=== PATIENT | female | born 1940 | race Caucasian/White ===

== ENCOUNTER 2017-12-20 14:58 | Inpatient (IN) ==
[2017-12-20 15:52] LABS: Basophils % 0.3 %; Eosinophils # 0.2 K/mcL (0.0-0.6); Eosinophils % 1.3 %; Hematocrit 39.2 % (35.3-44.9); Hemoglobin 13.3 g/dL (11.5-15.4); Immature Granulocytes % 0.3 % (0-4); Lymphocytes # 1.8 K/mcL (0.6-4.6); Mean Corpuscular HGB Conc 33.9 g/dL (31.6-35.5); Mean Corpuscular Hemoglobin 31.4 pg (28.0-33.3); Mean Corpuscular Volume 92.7 fL (83.0-100.0); Mean Platelet Volume 10.7 fL (9.4-12.4); Monocytes # 1.3 K/mcL (0.0-1.3); Monocytes % 11.5 %; Platelet Count 189 K/mcL (140-400); Red Blood Count 4.23 M/mcL (3.82-4.97); Red Cell Distribution Width 12.3 % (11.5-14.5); Segmented Neutrophils % 70.6 %
[2017-12-20 15:54] LABS: Bilirubin,Urine Negative (Negative); Blood,Urine Negative (Negative); Clarity,Urine Cloudy (Clear); Color,Urine Yellow (Yellow); Glucose,Urine (UA) Normal (Normal); Ketones,Urine Negative (Negative); Leukocyte Esterase,Urine Large (Negative); Nitrite,Urine Negative (Negative); Protein,Urine Negative (Neg-Trace); Specific Gravity,Urine 1.024 (1.010-1.025); Urobilinogen,Urine Normal (Normal)
[2017-12-20 15:57] LABS: Bacteria,Urine Few per hpf (None-Few); Hyaline Casts,Urine None Seen per lpf (None-Few); Squamous Epithelial Cell,Urine Many per lpf (None-Few); WBC,Urine 30-50 per hpf (0-3)
[2017-12-20 16:11] LABS: Alanine Aminotransferase 21 Units/L (7-52); Albumin 4.1 g/dL (3.5-5.7); Albumin/Globulin Ratio 1.4 (1.1-2.2); Alkaline Phosphatase 62 Units/L (34-104); Aspartate Amino Transferase 24 Units/L (13-39); BUN/Creatinine Ratio 18 (6-26); Bilirubin,Direct 0.2 mg/dL (0.0-0.2); Bilirubin,Indirect 0.8 mg/dL (0.0-1.2); Blood Urea Nitrogen 13 mg/dL (8-23); Calcium 10.1 mg/dL (8.6-10.3); Carbon Dioxide 25 mEq/L (23-29); Chloride 106 mEq/L (98-107); Glucose 124 mg/dL (70-105); Lipase 4 Units/L (11-82); Osmolality,Calculated 286 (280-300); Potassium 4.2 mEq/L (3.5-5.1); Sodium 137 mEq/L (136-145); Total Protein 7.1 g/dL (6.4-8.9); eGFR For Non-African Americans > 60 (> 60)
[2017-12-20] MEDS ORDERED: Sulfamethoxazole/Trimeth DS 1 EACH TABLET PO ONE (16:27)
--- NOTE | 2017-12-20 16:31 | Emergency Department Note ---
Disposition Clinical Impression: Acute appendicitis Disposition: Admitted As Inpatient Condition: Fair General Adult HPI - General Chief complaint: ED Abdominal Pain Stated complaint: ABD Pain Time Seen by Provider: 12/20/17 16:15 Source: patient Limitations: no limitations Nursing Notes Reviewed: Yes Vital Signs Reviewed: Yes - History of Present Illness Pain Scale: 9 - Related Data Home Medications Medication Instructions Recorded Confirmed Aspirin Enteric Coated [Aspirin EC] 81 mg PO DAILY 12/20/17 12/20/17 Furosemide [Lasix] 40 mg PO DAILY PRN 12/20/17 12/20/17 Ranitidine HCl [Heartburn Relief] 150 mg PO DAILY 12/20/17 12/20/17 Allergies Allergy/AdvReac Type Severity Reaction Status Date / Time No Known Allergies Allergy Verified 12/20/17 17:18 Past Medical History - Past Medical History Medical history: Reports: other Surgical history: Reports: non-contributory Psychiatric history: Reports: no psych history - Social History Smoking Status: Never smoker Smokeless Tobacco Status: No Alcohol use: Reports: none Drug use: Reports: none Physical Exam - General Limitations: no limitations General appearance: alert, in no apparent distress Course Vital Signs Temperature 98.4 F 12/20/17 15:00 Pulse Rate 89 12/20/17 15:00 Respiratory Rate 18 12/20/17 15:00 Blood Pressure 178/74 12/20/17 15:00 O2 Sat by Pulse Oximetry 95 12/20/17 15:00 Temperature 98.4 F 12/20/17 16:23 Pulse Rate 89 12/20/17 16:23 Respiratory Rate 18 12/20/17 16:23 Blood Pressure 178/74 12/20/17 16:23 O2 Sat by Pulse Oximetry 95 12/20/17 16:23 Oxygen Delivery Oxygen Delivery Room Air Medical Decision Making - [facility] Narrative Medical decision making narrative: Abdomen/Pelvis CT 12/20/17 16:27 IMPRESSION: Findings are suspicious for early acute appendicitis with periappendiceal inflammatory change and some appendiceal dilatation. No fluid collection is identified. D/ / Christophe Miller / Christophe Miller Interpreting Provider: Christophe Miller 17:10 hrs: Patient's white count is elevated looks like may be early appendicitis. Were going to speak with surgery and bring her into the hospital. She is in agreement with plan. 1748 hrs., surgery is here to take the patient to the OR. - Lab Data Result diagrams: 12/20/17 15:03 12/20/17 15:03 Lab Results 12/20/17 12/20/17 12/20/17 Range/Units 15:03 15:03 15:40 WBC 11.3 H (4.3-11.1) K/mcL RBC 4.23 (3.82-4.97) M/mcL Hgb 13.3 (11.5-15.4) g/dL Hct 39.2 (35.3-44.9) % MCV 92.7 (83.0-100.0) fL MCH 31.4 (28.0-33.3) pg MCHC 33.9 (31.6-35.5) g/dL RDW 12.3 (11.5-14.5) % Plt Count 189 (140-400) K/mcL MPV 10.7 (9.4-12.4) fL Immature Gran % 0.3 (0-4) % Seg Neutrophils % 70.6 % Lymphocytes % 16.0 % Monocytes % 11.5 % Eosinophils % 1.3 % Basophils % 0.3 % Neutrophils # 8.0 (1.6-8.9) K/mcL Lymphocytes # 1.8 (0.6-4.6) K/mcL Monocytes # 1.3 (0.0-1.3) K/mcL Eosinophils # 0.2 (0.0-0.6) K/mcL Basophils # 0.0 (0.0-0.2) K/mcL Sodium 137 (136-145) mEq/L Potassium 4.2 (3.5-5.1) mEq/L Chloride 106 (98-107) mEq/L Carbon Dioxide 25 (23-29) mEq/L BUN 13 (8-23) mg/dL Creatinine 0.72 (0.60-1.20) mg/dL Est GFR ( Amer) > 60 (> 60) Est GFR (Non-Af Amer) > 60 (> 60) BUN/Creatinine Ratio 18 (6-26) Glucose 124 H (70-105) mg/dL Calculated Osmolality 286 (280-300) Calcium 10.1 (8.6-10.3) mg/dL Total Bilirubin 1.0 (0.3-1.0) mg/dL Direct Bilirubin 0.2 (0.0-0.2) mg/dL Indirect Bilirubin 0.8 (0.0-1.2) mg/dL AST 24 (13-39) Units/L ALT 21 (7-52) Units/L Alkaline Phosphatase 62 (34-104) Units/L Serum Total Protein 7.1 (6.4-8.9) g/dL Albumin 4.1 (3.5-5.7) g/dL Globulin 3.0 (2.4-3.5) g/dL Albumin/Globulin Ratio 1.4 (1.1-2.2) Lipase 4 L (11-82) Units/L Urine Color Yellow (Yellow) Urine Clarity Cloudy A (Clear) Urine pH 7.0 (5.0-8.0) pH Units Ur Specific [place] 1.024 (1.010-1.025) Urine Protein Negative (Neg-Trace) mg/dL Urine Glucose (UA) Normal (Normal) mg/dL Urine Ketones Negative (Negative) mg/dL Urine Blood Negative (Negative) Urine Nitrite Negative (Negative) Urine Bilirubin Negative (Negative) Urine Urobilinogen Normal (Normal) mg/dL Ur Leukocyte Esterase Large H (Negative) Urine Microscopic RBC 3-5 H (0-3) per hpf Urine Microscopic WBC 30-50 H (0-3) per hpf Ur Squamous Epith Cells Many H (None-Few) per lpf Urine Bacteria Few (None-Few) per hpf Hyaline Casts None Seen (None-Few) per lpf Ur Culture Indicated? NO. A (NO) Attestation Statement - Attestation Attestation: This documentation is done with the assistance of Dragon dictation. Despite efforts made to ensure accuracy, there may be inaccuracies in staff consultant or spelling and typographical errors. I examined this patient and my medical decision-making was reviewed with the Resident Physician. I agree with the documented findings, disposition and treatment plan as described except to the extent set forth below. Patient presents today was seen with Dr. Sparks and myself, I agree with her evaluation and management plan, supervise care the patient's stay. Patient presents today with possible UTI and she has had increased frequency of urination and dysuria and suprapubic and left-sided abdominal pain denies any flank pain or chest pain. Her urine looks like it is infected we will culture her CBC and chemistries unremarkable. A CT her abdomen makes sure there is no other intra- abdominal pathology started on Bactrim Pyridium here and if the CT looks good she will go home with follow-up primary care on antibiotics. She is in agreement with this plan.
--- NOTE | 2017-12-20 17:23 | Emergency Department Note ---
Disposition Clinical Impression: Acute appendicitis Qualifiers: Acute appendicitis type: with localized peritonitis Qualified Code(s): K35.3 - Acute appendicitis with localized peritonitis Disposition: Admitted As Inpatient Condition: Fair Referrals: Shannon Goncalves DO [Primary Care Provider] - Forms: ED Satisfaction Letter, Work/School Release Time of Disposition: 17:28 General Adult HPI - General Chief complaint: ED Abdominal Pain Stated complaint: ABD Pain Time Seen by Provider: 12/20/17 16:15 Source: patient Mode of arrival: ambulatory Limitations: no limitations Nursing Notes Reviewed: Yes Vital Signs Reviewed: Yes - History of Present Illness HPI Narrative: 77-year-old female with no significant past medical history presenting to the emergency part chief complaint of abdominal pain. Patient states she has had some increased frequency in urination but denies dysuria or hematuria. Patient states it started this morning and has progressively been getting worse. Located in the suprapubic region and radiates to the right lower quadrant and left lower quadrant. Patient discloses nausea but denies vomiting or diarrhea. Denies any fever, chest pain or shortness of breath. Pain Scale: 9 - Related Data Home Medications Medication Instructions Recorded Confirmed Aspirin Enteric Coated [Aspirin EC] 81 mg PO DAILY 12/20/17 12/20/17 Furosemide [Lasix] 40 mg PO DAILY PRN 12/20/17 12/20/17 Ranitidine HCl [Heartburn Relief] 150 mg PO DAILY 12/20/17 12/20/17 Allergies Allergy/AdvReac Type Severity Reaction Status Date / Time No Known Allergies Allergy Verified 12/20/17 17:18 All systems ED: reviewed and negative except as stated. Constitutional: Denies: fever, chills Eyes: Reports: as per HPI ENT ED: Reports: as per HPI Cardiovascular: Denies: chest pain, palpitations, dyspnea on exertion Respiratory: Denies: cough, dyspnea, wheezes Gastrointestinal: Reports: abdominal pain, nausea. Denies: vomiting, diarrhea Genitourinary: Reports: frequency. Denies: urgency, dysuria Musculoskeletal: Reports: as per HPI Integumentary: Reports: as per HPI Neurological: Denies: weakness, numbness, paresthesias Psychiatric: Reports: as per HPI Endocrine: Reports: as per HPI Hematological/Lymphatic: Reports: as per HPI Allergic/Immunologic: Reports: as per HPI Past Medical History - Past Medical History Attestation: Yes The following information was validated with the patient. Medical history: Reports: other Surgical history: Reports: non-contributory Psychiatric history: Reports: no psych history - Social History Smoking Status: Never smoker Smokeless Tobacco Status: No Alcohol use: Reports: none Drug use: Reports: none Physical Exam - General Limitations: no limitations General appearance: alert, in no apparent distress - Head Head exam: atraumatic, normocephalic, normal inspection - Eye Eye exam: Present: normal appearance. Absent: scleral icterus, conjunctival injection - ENT ENT exam: normal exam, mucous membranes moist - Neck Neck exam: Present: normal inspection, full ROM. Absent: tenderness, meningismus - Chest Chest inspection: Present: normal inspection, symmetric chest wall rise. Absent : tenderness, rash - Respiratory Respiratory exam: Present: normal lung sounds bilaterally. Absent: respiratory distress, wheezes - Cardiovascular Cardiovascular exam: Present: regular rate, normal rhythm, normal heart sounds - Abdominal Exam Abdominal exam: Present: soft, tenderness (Tenderness to superficial and deep palpation in the suprapubic, right lower quadrant and left lower quadrant.), rebound. Absent: distention, guarding, rigidity - Extremities Exam Extremities exam: Present: normal inspection, full ROM - Back Exam Back exam: Absent: CVA tenderness (R), CVA tenderness (L) - Neurological Exam Neurological exam: Present: alert, oriented X3 - Psychiatric Psychiatric exam: Present: normal affect, normal mood - Skin Skin exam: Present: warm, intact Course Course Narrative: 77-year-old female presenting with chief complaint of abdominal pain. Patient had triage labs which showed mild leukocytosis but otherwise benign. Urine analysis shows positive leukocyte Esterase. Patient is having suprapubic tenderness. We will perform a CT of the abdomen and pelvis at this time. Disposition pending results. Patient is alert and oriented 3 in the room with stable vital signs. Patient agrees with this plan. - Reevaluation(s) Reevaluation #1: Patient CT of abdomen and pelvis shows early acute appendicitis. I spoke with the surgeon impression printer Dr. ayala who agrees to accept the patient for surgical intervention. Patient is alert and oriented 3 in the room with stable vital signs. Vital Signs Temperature 98.4 F 12/20/17 15:00 Pulse Rate 89 12/20/17 15:00 Respiratory Rate 18 12/20/17 15:00 Blood Pressure 178/74 12/20/17 15:00 O2 Sat by Pulse Oximetry 95 12/20/17 15:00 Temperature 98.4 F 12/20/17 16:23 Pulse Rate 89 12/20/17 16:23 Respiratory Rate 18 12/20/17 16:23 Blood Pressure 178/74 12/20/17 16:23 O2 Sat by Pulse Oximetry 95 12/20/17 16:23 Oxygen Delivery Oxygen Delivery Room Air Medical Decision Making - Lab Data Result diagrams: 12/20/17 15:03 12/20/17 15:03 Lab Results 12/20/17 12/20/17 12/20/17 Range/Units 15:03 15:03 15:40 WBC 11.3 H (4.3-11.1) K/mcL RBC 4.23 (3.82-4.97) M/mcL Hgb 13.3 (11.5-15.4) g/dL Hct 39.2 (35.3-44.9) % MCV 92.7 (83.0-100.0) fL MCH 31.4 (28.0-33.3) pg MCHC 33.9 (31.6-35.5) g/dL RDW 12.3 (11.5-14.5) % Plt Count 189 (140-400) K/mcL MPV 10.7 (9.4-12.4) fL Immature Gran % 0.3 (0-4) % Seg Neutrophils % 70.6 % Lymphocytes % 16.0 % Monocytes % 11.5 % Eosinophils % 1.3 % Basophils % 0.3 % Neutrophils # 8.0 (1.6-8.9) K/mcL Lymphocytes # 1.8 (0.6-4.6) K/mcL Monocytes # 1.3 (0.0-1.3) K/mcL Eosinophils # 0.2 (0.0-0.6) K/mcL Basophils # 0.0 (0.0-0.2) K/mcL Sodium 137 (136-145) mEq/L Potassium 4.2 (3.5-5.1) mEq/L Chloride 106 (98-107) mEq/L Carbon Dioxide 25 (23-29) mEq/L BUN 13 (8-23) mg/dL Creatinine 0.72 (0.60-1.20) mg/dL Est GFR ( Amer) > 60 (> 60) Est GFR (Non-Af Amer) > 60 (> 60) BUN/Creatinine Ratio 18 (6-26) Glucose 124 H (70-105) mg/dL Calculated Osmolality 286 (280-300) Calcium 10.1 (8.6-10.3) mg/dL Total Bilirubin 1.0 (0.3-1.0) mg/dL Direct Bilirubin 0.2 (0.0-0.2) mg/dL Indirect Bilirubin 0.8 (0.0-1.2) mg/dL AST 24 (13-39) Units/L ALT 21 (7-52) Units/L Alkaline Phosphatase 62 (34-104) Units/L Serum Total Protein 7.1 (6.4-8.9) g/dL Albumin 4.1 (3.5-5.7) g/dL Globulin 3.0 (2.4-3.5) g/dL Albumin/Globulin Ratio 1.4 (1.1-2.2) Lipase 4 L (11-82) Units/L Urine Color Yellow (Yellow) Urine Clarity Cloudy A (Clear) Urine pH 7.0 (5.0-8.0) pH Units Ur Specific [place] 1.024 (1.010-1.025) Urine Protein Negative (Neg-Trace) mg/dL Urine Glucose (UA) Normal (Normal) mg/dL Urine Ketones Negative (Negative) mg/dL Urine Blood Negative (Negative) Urine Nitrite Negative (Negative) Urine Bilirubin Negative (Negative) Urine Urobilinogen Normal (Normal) mg/dL Ur Leukocyte Esterase Large H (Negative) Urine Microscopic RBC 3-5 H (0-3) per hpf Urine Microscopic WBC 30-50 H (0-3) per hpf Ur Squamous Epith Cells Many H (None-Few) per lpf Urine Bacteria Few (None-Few) per hpf Hyaline Casts None Seen (None-Few) per lpf Ur Culture Indicated? NO. A (NO)
--- NOTE | 2017-12-20 17:28 | Anesthesia Evaluation PreOp ---
Date of Encounter: 12/20/17 Time of Encounter: 18:09 - Past History Planned Operation: Laparoscopic Appendectomy Cardiac History: Denies any Significant Hx Pulmonary History: Denies Any Significant HX BEHAVIOR CLINICIAN History: Denies Any Significant HX Other Medical History: GERD Anesthesia History: No Prior Anesthetic Complications, Past Anesthesia Alcohol Use: none Drug use: none Medications and Allergies Aspirin Enteric Coated [Aspirin EC] 81 mg PO DAILY 12/20/17 [History] Furosemide [Lasix] 40 mg PO DAILY PRN 12/20/17 [History] Ranitidine HCl [Heartburn Relief] 150 mg PO DAILY 12/20/17 [History] 3 Allergy/AdvReac Type Severity Reaction Status Date / Time No Known Allergies Allergy Verified 12/20/17 17:18 - Meds/Allergy Pre-op Review Medications Reviewed: Yes Allergies Reviewed: Yes Beta Blockers on Current Med List: No Anesthesia Results - Labs 12/20/17 15:03 12/20/17 15:03 - Imaging Additional studies: 09/03/2015 Stress Echo Impressions: Nondiagnostic study due to submaximal HR (82%). Stress ECG: Negative for ischemia at the level of HR achieved. Stress Echocardiogram: Appropriate increase EF with stress. No segmental wall motion abnormalities at the level of HR achieved. Findings: Stress Echocardiogram * Normal sinus rhythm. * Rare PVCs noted prior to exam beginning. * Non-diagnostic study due to submaximal HR (82%). * Stress ECG is negative for ischemia at the level of HR achieved. * The patient demonstrated a normal blood pressure response. * No arrhythmias during exercise or recovery. * The exercise capacity was fair. * No chest pain during stress procedure. * Appropriate increase EF with stress. No segmental wall motion abnormalities at the level of HR achieved. Rest Echocardiogram * LVEF 60-65%. * Normal left ventricular structure and function. Anesthesia Exam Vital Signs/O2 Sat, Most Current Temp Pulse Resp BP Pulse Ox 98.4 F 89 16 158/94 95 12/20/17 16:23 12/20/17 16:23 12/20/17 17:58 12/20/17 17:58 12/20/17 16:23 Height: 5'2''/1.57m Weight: 205 lbs/93 kg NPO (# of Hours): 6 Pain Scale: 0 Pain Scale Used: Numeric (1 - 10) - HEENT Pupil (Motor): EOMI Mallampati: II Teeth: Normal Oral Opening: Greater than 3 - BEHAVIOR CLINICIAN LOC: Oriented BEHAVIOR CLINICIAN Motor: Normal RUE, Normal LUE, Normal RLE, Normal LLE, Normal Face BEHAVIOR CLINICIAN Sensory: Normal: RUE, LUE, RLE, LLE, Face - Cardiac Rhythm: Regular Murmur: None - Pulmonary Breath Sounds: bilateral Clear Respiratory Effort: Symmetrical Anesthesia Assess/Plan ASA Score: 2 Modified [place] Scale for Level of Consciousness: Cooperative, oriented, and tranquil Anesthetic Plan: General Monitoring Plan: Standard Monitors Recovery Plan: PACU
[2017-12-20] MEDS ORDERED: Neostigmine Methylsulfate 3 MG/3 ML SYRINGE ONE (17:33)
[2017-12-20] MEDS ORDERED: *HR* Rocuronium Bromide 50 MG/5 ML VIAL ONE (17:33)
[2017-12-20] MEDS ORDERED: Ondansetron 4 MG/2 ML VIAL ONE (17:33)
[2017-12-20] MEDS ORDERED: Lidocaine -MPF 2% 2 ML VIAL ONE (17:33)
[2017-12-20] MEDS ORDERED: *HR* FentaNYL (PF) 100 MCG/2 ML VIAL ONE (17:34)
[2017-12-20] MEDS ORDERED: *HR* Propofol 200 MG/20 ML VIAL IVP ONE (17:34)
[2017-12-20] MEDS ORDERED: Lidocaine -MPF 4% 5 ML AMPUL ONE (17:39)
[2017-12-20] MEDS ORDERED: Dexamethasone 4 MG/ML VIAL ONE (17:40)
[2017-12-20] MEDS ORDERED: *HR* OxyCODONE Immed Rel 5 MG TABLET PO PRN ×2 (17:51→21:19)
[2017-12-20] MEDS ORDERED: *HR* Morphine 2 MG/ML SYRINGE IVP PRN (17:51)
[2017-12-20] MEDS ORDERED: *HR* Labetalol 100 MG/20 ML MDV IVP PRN (17:51)
[2017-12-20] MEDS ORDERED: *HR* Promethazine 25 MG/ML VIAL IVP PRN ×2 (17:51→21:19)
[2017-12-20] MEDS ORDERED: Bupivacaine/EPI 1:200k 0.25%PF 30 ML VIAL ONE ×2 (17:54→19:27)
--- NOTE | 2017-12-20 18:06 | General Surg History&Physical ---
Date of Encounter: 12/20/17 Time of Encounter: 17:35 History of Present Illness Chief complaint: acute right lower quadrant pain, acute appendicitis HPI: Ms. Cueto is a 77 year old female referred for further evaluation and treatment new-onset right lower quadrant abdominal pain. Patient indicates that the symptoms started abruptly at about 0800 hrs. this morning. The symptoms have progressed, becoming more severe. On presentation to the emergency department patient indicated right lower quadrant abdominal tenderness which she thought was urinary tract infection. White count was mildly elevated, 11.3 with a normal differential. Hemoglobin 13.3, hematocrit 39.2. Electrolytes, BUN, creatinine were within normal limits. Urinalysis was abnormal showing large leukocyte esterase, 3-5 RBCs and 30-50 white cells/hpf. CT abdomen and pelvis was reviewed. Findings include a dilated appendix with periappendiceal inflammation are consistent with acute appendicitis prompting surgical referral. Past medical history: No noted history of hypertension, diabetes, heart disease , pulmonary disease or renal disease. Surgical history: An unspecified cystic lesion removed from the pelvis when the patient was in her 20s. The patient is unclear as to the diagnosis, whether this be an ovarian cyst, ovarian cyst, urachal cyst. The cyst was removed via low midline incision. Allergies: No known drug allergies Medications: OTCs including vitamin Aspirin 81 mg by mouth daily Ranitidine dose and frequency not specified Social history: , lives with spouse; G0; never smoker, does not consume alcohol or use illicit drugs. Family history: Noncontributory Physical examination: Age-appropriate, moderately overweight female in no acute distress. She is afebrile at 98.4, pulse 89, respirations 16- 18; Blood pressure 178/74. SPO2 on room air 95%. The patient is 1.5 cm tall, 98.99 kg, BMI 37.5. Skin: Warm, no obvious jaundice Lungs: Clear, no obvious abdominal pain on deep inspiration Cardiac: Regular rate, no appreciable murmur Abdomen: Obese with tenderness in the right lower quadrant. Minimal right lower quadrant tenderness when the left lower quadrant was palpated. No obvious intra-abdominal masses. No rebound. Well-healed low midline surgical scar is evident, no detected fascial defects. Extremities: Multiple superficial varicosities; no obvious clubbing, cyanosis , or edema. Impression: 77-year-old female with acute appendicitis. Treatment options include admission to [facility], maintain NPO with IV fluids and pain control, serial abdominal exams v appendectomy. Risks of surgery include hemorrhage, infection, injury to adjacent structures such as adjacent structures such as small bowel and colon, ureters, and bladder. We also discussed possible removal of a normal appendix. The patient is a reasonable candidate for laparoscopic appendectomy but understands that open appendectomy may become necessary. The patient expressed her desire to proceed with appendectomy. Surgical consent Has been obtained. The OR has been notified. Postoperative admission to [facility] has been arranged. Past Med Surg Social Fam HX - Past Medical History Medical history: other Psychiatric history: no psych history - Past Surgical History Surgical History: non-contributory Additional surgical history: cyst removal - Social History Smoking Status: Never smoker Smokeless Tobacco Status: No Alcohol use: none Drug use: none Medications and Allergies Aspirin Enteric Coated [Aspirin EC] 81 mg PO DAILY 12/20/17 [History] Furosemide [Lasix] 40 mg PO DAILY PRN 12/20/17 [History] Ranitidine HCl [Heartburn Relief] 150 mg PO DAILY 12/20/17 [History] 3 Allergy/AdvReac Type Severity Reaction Status Date / Time No Known Allergies Allergy Verified 12/20/17 17:18 Review of Systems All systems PM: The remainder of the systems were reviewed and are negative General Surgery Exam Initial Vital Signs Temp Pulse Resp BP Pulse Ox 98.4 F 89 18 178/74 95 12/20/17 15:00 12/20/17 15:00 12/20/17 15:00 12/20/17 15:00 12/20/17 15:00 Results - Labs 12/20/17 15:03 12/20/17 15:03 Abnormal lab results WBC 11.3 K/mcL (4.3-11.1) H 12/20/17 15:03 Glucose 124 mg/dL (70-105) H 12/20/17 15:03 Lipase 4 Units/L (11-82) L 12/20/17 15:03 Urine Clarity Cloudy (Clear) A 12/20/17 15:40 Ur Leukocyte Esterase Large (Negative) H 12/20/17 15:40 Urine Microscopic RBC 3-5 per hpf (0-3) H 12/20/17 15:40 Urine Microscopic WBC 30-50 per hpf (0-3) H 08/06/18 15:40 Ur Squamous Epith Cells Many per lpf (None-Few) H 12/20/17 15:40 Ur Culture Indicated? NO. (NO) A 12/20/17 15:40 All other labs normal.
[2017-12-20] MEDS ORDERED: Acetaminophen IV 1,000 MG/100 ML INFUS..BTL ONE (18:11)
[2017-12-20] MEDS ORDERED: *HR* PHENYLEPHRINE 1,000 MCG/10 ML SYRINGE IVP ONE ×2 (18:45)
[2017-12-20] MEDS ORDERED: CefOXitin 2,000 MG VIAL ONE (18:46)
--- NOTE | 2017-12-20 20:28 | Operative Note ---
Date of procedure: 12/20/17 Pre-op diagnosis: Acute appendicitis Post-op diagnosis: same Procedure: Laparoscopy, open appendectomy Complications: Disrupted appendix Anesthesia: GETA Local Anesthetics: 0.25% Sensorcaine HCL with Epinephrine 1:200,000 SubQ (cc) ( 36 mL) Surgeon: Mason Rosas Was there an gift shop assistant present: No Estimated blood loss (cc): 50 IV fluids (cc): 1,200 Specimen: appendix - 2 fragments Condition: stable Disposition: PACU Procedure in Detail: The patient was brought to the operating room where she was placed supine on the procedure table. The patient was appropriately identified as to person and procedure. The accuracy of this information was confirmed by the patient and procedure team. The patient was then intubated and anesthetized under the supervision of Dr. Hanane Casillas. The abdomen was examined under anesthesia, there was no palpable intra-abdominal masses. No induration or fullness in the right lower quadrant. The abdomen was prepped and draped in usual sterile fashion. Several milliliters of 0.25% bupivacaine with 1-200,000 epinephrine was infiltrated into the infraumbilical skin. A small transverse incision was made, dissection was extended to the fascia. The fascia was grasped and elevated. Additional bupivacaine with epinephrine was infiltrated. The fascia was incised, a gloved finger inserted. I was able to enter the abdominal cavity bluntly and established there was no bowel adherent to the anterior abdominal wall related to previous exploratory celiotomy via low midline incision. An 11 mm X-[place] port was established. The abdomen was insufflated with gaseous carbon dioxide. Edges laparoscope was inserted. There was no obvious visible injury from establishing the port. Under direct visualization a 5 mm port was placed in the suprapubic midline and a 12 mm port established in the left lower quadrant, midclavicular line. Each of these sites were infiltrated with several liters 0.25% bupivacaine with epinephrine. The cecum was identified and elevated. Acute inflammation at the junction of the appendix with the cecum was noted. The mesoappendix was dissected, the appendix was transected at its junction with the cecum using a Ethicon ATS 45 mm stapler, blue cartridge. The appendix retracted from the cecum. I was able to identify the appendix. As I was elevating the appendix to transect the mesoappendix, the appendix disrupted. The proximal portion of the appendix was placed in an endoscopic pouch and extracted. There was a small stream of pulsatile bleeding from the mesoappendix. I briefly spent time attempting to laparoscopically identify the source of the pulsatile bleeding to control it, however, I was unable to do so. The laparoscopic surgery was abandoned, open appendectomy was completed. A small transverse incision just cephalad and medial to the right anterior superior iliac spine was created with a #10 scalpel. Dissection extended through the subcutaneous tissue. Bleeding points were controlled with electrocautery. The aponeurosis external oblique was incised transversely. The transversalis fascia was grasped with 2 Jamila clamps elevated and incised. This allowed atraumatic entry into the abdominal cavity. Was able to identify the cecum, elevate it, and identify the bleeding appendiceal artery in the mesoappendix. Clips were applied. The distal portion of the appendix was also identified and extracted. The 2 fragments of appendix were collected and sent to pathology. The right paracolic gutter extending into the pelvis was irrigated with warm sterile saline. This fluid was evacuated with a suction device. Hemostasis appeared to be intact. No other abnormalities were noted. Closure was initiated. The fascia of the infraumbilical opening was closed with interrupted [id number] 0 Vicryl with a gloved hand placed subfascially to protect intra-abdominal structures. A transverse incision was then closed in layers. The peritoneum was closed with running 0 Vicryl. Several milliliters of 0.25% bupivacaine with 1-200,000 epinephrine was infiltrated into this layer. Transversalis fascia was closed with interrupted [id number] 0 Vicryl. This layer was also infiltrated with bupivacaine with epinephrine solution. Tinniest tissue was approximated with running 3-0 Vicryl. Edges were approximated with skin kathy. This included the infraumbilical, left lower quadrant, and suprapubic ports. Dry sterile dressings were applied. The patient was taken recovery in stable condition. Needle, sponge, and instrument counts were correct at the close of the case.
--- NOTE | 2017-12-20 21:01 | Anesthesia Evaluation Post Op ---
Date of Encounter: 12/20/17 Time of Encounter: 21:00 - Vital Signs Vital Signs: Vital Signs/O2 Sat, Most Current Temp Pulse Resp BP Pulse Ox 97.9 F 87 16 126/67 96 12/20/17 20:49 12/20/17 20:49 12/20/17 20:49 12/20/17 20:49 12/20/17 20:49 - Lungs Lungs: Clear Ascult./Percussion - Airway Airway: Non-obstructed - Cardiovascular Regular Rate - Mental Status Mental Status: Alert & Oriented, Answers Appropriately - Pain Pain Scale: 0 Pain Scale used: Numeric (1 - 10) - Nausea Vomiting Nausea Vomiting: Not Present - Hydration Hydration: NPO - Discharge PostOp Status: Transfer Patient to floor Attestation: I have assessed this patient and find they meet discharge criteria.
[2017-12-20] MEDS ORDERED: *HR* OxyCODONE/APAP 5/325 TABLET PO PRN (21:19)
[2017-12-20] MEDS ORDERED: Acetaminophen 325 MG TABLET PO PRN (21:19)
[2017-12-20] MEDS ORDERED: Ondansetron 4 MG/2 ML VIAL IVP PRN (21:19)
[2017-12-20] MEDS: Ringers Solution, Lactated 1,000 ML IVC SCH (23:41)
[2017-12-20] MEDS: cefOXitin 1,000 MG in Water for inj. (sterile) 20 ML 10 ML IVPB SCH (23:41)
[2017-12-21 07:14] LABS: Basophils % 0.1 %; Hematocrit 37.5 % (35.3-44.9); Hemoglobin 12.7 g/dL (11.5-15.4); Immature Granulocytes % 0.4 % (0-4); Lymphocytes % 7.8 %; Mean Corpuscular HGB Conc 33.9 g/dL (31.6-35.5); Mean Corpuscular Hemoglobin 30.9 pg (28.0-33.3); Mean Corpuscular Volume 91.2 fL (83.0-100.0); Monocytes # 0.7 K/mcL (0.0-1.3); Monocytes % 5.3 %; Neutrophils # 10.8 K/mcL (1.6-8.9); Platelet Count 178 K/mcL (140-400); Red Blood Count 4.11 M/mcL (3.82-4.97); Red Cell Distribution Width 12.1 % (11.5-14.5); Segmented Neutrophils % 86.4 %
[2017-12-21] MEDS: cefOXitin 1,000 MG in Water for inj. (sterile) 20 ML 10 ML IVPB SCH (08:58)
[2017-12-21] MEDS ORDERED: Aspirin Enteric Coated 81 MG Tablet PO SCH (09:00)
[2017-12-21 10:07] VITALS: BP 146/61
[2017-12-21] MEDS: Ringers Solution, Lactated 1,000 ML IVC SCH (10:32)
--- NOTE | 2017-12-21 14:58 | General Surgery Progress Note ---
Date of Encounter: 12/21/17 Time of Encounter: 14:48 Subjective Narrative: General Surgery - POD #1 Progess Note / Discharge Summary Patient feeling better; preoperative symptoms are resolved. The patient admits to mild diffuse abdominal tenderness but has not required any pain medication. The patient has been afebrile, currently 97.4, pulse 78, respirations 114, blood pressure 146/61. SPO2 on room air 91-92%%. Lungs: Clear to auscultation; no obvious abdominal pain on deep inspiration Cardiac: Regular rate, no appreciable murmurs Abdomen: Dressing removed; incisions appear clean and intact. No detected fascial defects. Minimal abdominal tenderness, particularly around the transverse incision right lower quadrant. Active bowel sounds. The patient is tolerating regular diet, no nausea or vomiting postop Urine output approximately 600 mL for this calendar day Laboratories: White count 12.5, hemoglobin 12.7, hematocrit 37.5. Neutrophils elevated to 10.8 but likely response to surgery Pathology: Pending Impression: Acute Appendicitis - Postoperative day 1: status post laparoscopy converted to open appendectomy. Satisfactory postoperative status. Disrupted appendix during the surgery; but no obvious gross spillage of pus or stool The patient indicates her preoperative abdominal pain/symptoms are resolved. Minimal dahlia-incisional tenderness as expected. The patient has expressed her desire to be discharged home. Plan: Discharge home Oral antibiotics Tylenol, Motrin, Advil, Aleve, etc. as needed for pain Prescription for Percocet 5/325, #6, one every 6 hours as needed for pain not relieved by [id number] medications Follow-up my office , 12/23/17; patient to call office to make this appointment Objective Intake and Output 12/20/17 12/21/17 12/21/17 23:59 07:59 15:59 Intake Total 445 / 1610 Balance 445 / 1610 Intake: IV Fluids 85 / 1000 Lactated Ringers 1,000 ML @ 100 85 / 1000 mls/hr IVC .Q10H MUNIRA Rx#: [id number] Oral 360 / 600 Other: Meal Lunch Percent of Meal Consumed 100% - Labs 12/21/17 06:27 12/20/17 15:03 - VTE Documentation of Mechanical Device: Intermittent pneumatic compression device Consult Discharge Plan - Plan Referrals: Mason Rosas MD [Non-Partnered Physician] -
--- NOTE | 2017-12-21 15:01 | Discharge Summary ---
Outpatient Proc Discharge Plan - Plan Additional Instructions: Regular diet Activity as tolerated; lifting limited to less than 20 pounds Incisions may be left open air Patient may shower, wash incisions with soap and water. No ointments such as Neosporin or bacitracin needed or recommended at this time Tylenol, ibuprofen, Motrin, Advil, etc. as needed for pain Prescription for Percocet 5/325, #6, one every 6 hours as needed for pain not relieved by [id number] medications Prescription for Augmentin 875 mg by mouth twice a day 6 days (to complete seven-day course of antibiotic therapy) Follow-up my office, 12/23/17; patient to call office to make this appointment Prescriptions: Amoxicillin/Clavulanate [Augmentin] 875 mg PO BIDWM 6 Days #12 tablet OxyCODONE/APAP 5/325 [Percocet 5/325 MG] 1 each PO Q6H PRN 2 Days #6 tablet PRN Reason: Pain Home Medications: Aspirin Enteric Coated [Aspirin EC] 81 mg PO DAILY 12/20/17 [History] Furosemide [Lasix] 40 mg PO DAILY PRN 12/20/17 [History] Ranitidine HCl [Heartburn Relief] 150 mg PO DAILY 12/20/17 [History] Acetaminophen [Tylenol] 650 mg PO Q6H PRN tablet 12/21/17 [Rx] Amoxicillin/Clavulanate [Augmentin] 875 mg PO BIDWM 6 Days #12 tablet 12/21/17 [ Rx] OxyCODONE/APAP 5/325 [Percocet 5/325 MG] 1 each PO Q6H PRN 2 Days #6 tablet 12/01 [Rx]
== END 2017-12-21 15:15 | disposition home or self-care (01) | DRG 343 ==
LOC: EMEROO 14:58 → 3ANU 14:58
PROVIDERS: ADMIT Surgery; ATTEND Surgery
PROC: GENAPPY (ICD-10-PCS; 2017-12-20 17:30)

== ENCOUNTER 2021-03-10 15:42 | Observation (INO) ==
[2021-03-10] MEDS ORDERED: Aspirin 81 MG TAB.CHEW PO ONE (15:55)
[2021-03-10] MEDS ORDERED: Isovue-370 500 ML BOTTLE IVP ONE (16:23)
[2021-03-10 16:58] LABS: Basophils % 0.4 %; Eosinophils # 0.1 K/mcL (0.0-0.6); Eosinophils % 1.9 %; Hematocrit 42.4 % (35.3-44.9); Hemoglobin 14.1 g/dL (11.5-15.4); Immature Granulocytes % 0.1 % (0-4); Lymphocytes # 2.3 K/mcL (0.6-4.6); Lymphocytes % 34.1 %; Mean Corpuscular HGB Conc 33.3 g/dL (31.6-35.5); Mean Corpuscular Hemoglobin 31.3 pg (28.0-33.3); Mean Corpuscular Volume 94.2 fL (83.0-100.0); Mean Platelet Volume 11.1 fL (9.4-12.4); Monocytes # 0.8 K/mcL (0.0-1.3); Monocytes % 11.4 %; Neutrophils # 3.5 K/mcL (1.6-8.9); Platelet Count 200 K/mcL (140-400); Red Cell Distribution Width 12.1 % (11.5-14.5); Segmented Neutrophils % 52.1 %; White Blood Count 6.7 K/mcL (4.3-11.1)
[2021-03-10] MEDS: Nitroglycerin 0.4 MG TAB.SUBL SL PRN ×2 (16:58→17:03)
[2021-03-10 17:07] LABS: Prothrombin Time 11.1 Seconds (9.4-12.1)
[2021-03-10 17:09] LABS: Activated Partial Thrombo Time 31.2 Seconds (26.0-36.0)
[2021-03-10 17:24] LABS: BUN/Creatinine Ratio 21 (6-26); Blood Urea Nitrogen 17 mg/dL (8-23); Calcium 9.9 mg/dL (8.6-10.3); Carbon Dioxide 29 mEq/L (23-29); Chloride 104 mEq/L (98-107); Glucose 121 mg/dL (70-105); Osmolality,Calculated 293 (280-300); Potassium 3.5 mEq/L (3.5-5.1); Sodium 140 mEq/L (136-145); Troponin I < 0.03 ng/mL (< 0.04); eGFR For African Americans > 60 (> 60); eGFR For Non-African Americans > 60 (> 60)
[2021-03-10 17:44] LABS: Influenza A PCR Negative (Negative); Influenza B PCR Negative (Negative); Resp. Syncytial Virus PCR Negative (Negative); SARS-CoV-2 by PCR (In House) Negative (Negative)
[2021-03-10] MEDS ORDERED: Perflutren Lipid Microsphere 1.3 ML in 0.9 % Sodium Chloride 8.7 ML IVP PRN (22:21)
[2021-03-10] MEDS ORDERED: Morphine Sulfate 2 MG/ML SYRINGE IVP PRN (22:27)
[2021-03-10] MEDS ORDERED: Ondansetron 4 MG/2 ML VIAL IVP PRN (22:30)
[2021-03-10] MEDS ORDERED: Naloxone 0.4 MG/ML INJ IVP PRN (22:30)
[2021-03-10] MEDS ORDERED: *HR* LORazepam 2 MG/ML VIAL IVP ONE (22:35)
[2021-03-11 01:25] LABS: Hemoglobin 13.2 g/dL (11.5-15.4); Mean Corpuscular HGB Conc 33.8 g/dL (31.6-35.5); Mean Corpuscular Hemoglobin 31.4 pg (28.0-33.3); Mean Corpuscular Volume 92.9 fL (83.0-100.0); Mean Platelet Volume 10.9 fL (9.4-12.4); Platelet Count 192 K/mcL (140-400); Red Cell Distribution Width 12.2 % (11.5-14.5); White Blood Count 6.8 K/mcL (4.3-11.1)
[2021-03-11 01:37] LABS: INR 1.1; Prothrombin Time 11.7 Seconds (9.4-12.1)
[2021-03-11 01:44] LABS: BUN/Creatinine Ratio 20 (6-26); Blood Urea Nitrogen 13 mg/dL (8-23); Calcium 9.3 mg/dL (8.6-10.3); Carbon Dioxide 27 mEq/L (23-29); Chloride 107 mEq/L (98-107); Glucose 107 mg/dL (70-105); Magnesium 1.9 mg/dL (1.6-2.6); Osmolality,Calculated 291 (280-300); Potassium 3.6 mEq/L (3.5-5.1); Sodium 140 mEq/L (136-145); Triglycerides 74 mg/dL (< 150); eGFR For African Americans > 60 (> 60); eGFR For Non-African Americans > 60 (> 60)
[2021-03-11 01:45] LABS: Chol/HDL Ratio 2.6 (0-4.9); Cholesterol 188 mg/dL (< 200); HDL Cholesterol 73 mg/dL (40-59); LDL Cholesterol,Calculated 100 mg/dL (< 100)
[2021-03-11 01:59] LABS: Thyroid Stimulating Hormone 1.01 mcIU/mL (0.340-5.600)
[2021-03-11 02:09] LABS: Folate 17.1 ng/mL (3.0-16.0)
[2021-03-11 02:20] LABS: Estimated Average Glucose 117 mg/dl; Hemoglobin A1C 5.7 %
[2021-03-11] MEDS: Aspirin Enteric Coated 81 MG Tablet PO SCH (08:12)
[2021-03-11] MEDS: *HR* Heparin 5,000 UNIT/ML VIAL SQ SCH ×3 (08:12→21:11)
[2021-03-11] MEDS: Cyanocobalamin (B-12) 1,000 MCG TABLET PO SCH (10:25)
[2021-03-11] MEDS ORDERED: Regadenoson 0.4 MG/5 ML SYRINGE IVP ONE (11:20)
[2021-03-11 15:01] LABS: Bilirubin,Urine Negative (Negative); Blood,Urine Negative (Negative); Clarity,Urine Clear (Clear); Color,Urine Light-Yellow (Yellow); Glucose,Urine (UA) Normal (Normal); Hyaline Casts,Urine Few per lpf (None Seen); Ketones,Urine 10 mg/dL (Negative); Leukocyte Esterase,Urine Small (Negative); Mucus,Urine Few per lpf (None-Few); Nitrite,Urine Negative (Negative); PH,Urine 6.5 pH Units (5.0-8.0); Protein,Urine Trace mg/dL (Neg-Trace); RBC,Urine 0-3 per hpf (0-3); Renal Epithelial Cells,Urine Few per hpf (None-Few); Specific Gravity,Urine 1.025 (1.010-1.025); Squamous Epithelial Cell,Urine Few per hpf (None-Few); Transitional Epi Cells,Urine Few per hpf (None-Few); Urobilinogen,Urine Normal (Normal); WBC,Urine 0-3 per hpf (0-3)
[2021-03-11] MEDS ORDERED: *HR* Metoprolol 5 MG/5 ML VIAL IVP PRN (15:57)
[2021-03-12 04:53] LABS: Hematocrit 39.4 % (35.3-44.9); Hemoglobin 13.4 g/dL (11.5-15.4); Mean Corpuscular Hemoglobin 32.5 pg (28.0-33.3); Mean Corpuscular Volume 95.6 fL (83.0-100.0); Mean Platelet Volume 11.5 fL (9.4-12.4); Platelet Count 183 K/mcL (140-400); Red Blood Count 4.12 M/mcL (3.82-4.97); Red Cell Distribution Width 12.3 % (11.5-14.5); White Blood Count 6.3 K/mcL (4.3-11.1)
[2021-03-12 05:25] LABS: BUN/Creatinine Ratio 18 (6-26); Blood Urea Nitrogen 13 mg/dL (8-23); Carbon Dioxide 25 mEq/L (23-29); Chloride 108 mEq/L (98-107); Glucose 91 mg/dL (70-105); Osmolality,Calculated 292 (280-300); Potassium 3.7 mEq/L (3.5-5.1); Sodium 141 mEq/L (136-145); eGFR For African Americans > 60 (> 60); eGFR For Non-African Americans > 60 (> 60)
[2021-03-12] MEDS: *HR* Heparin 5,000 UNIT/ML VIAL SQ SCH (05:50)
[2021-03-12] MEDS: Aspirin Enteric Coated 81 MG Tablet PO SCH (08:37)
[2021-03-12] MEDS: Cyanocobalamin (B-12) 1,000 MCG TABLET PO SCH (08:37)
[2021-03-12 10:48] VITALS: BP 140/61; PULSE 80; TEMP 98; O2SAT 93
== END 2021-03-12 12:22 | disposition home or self-care (01) ==
LOC: 3BNU 15:42 → EMEROOARM 15:42 → SUATTDRO 22:42 → 3BNU 23:29
PROVIDERS: ADMIT Family Medicine; ATTEND Internal Medicine

== ENCOUNTER 2022-02-04 16:01 | Observation (INO) ==
[2022-02-04] MEDS ORDERED: Iopamidol - 370 500 ML MLS IVP ONE (16:24)
[2022-02-04 17:03] LABS: Hematocrit 38.9 % (35.3-44.9); Hemoglobin 12.8 g/dL (11.5-15.4); Mean Corpuscular HGB Conc 32.9 g/dL (31.6-35.5); Mean Corpuscular Volume 94.2 fL (83.0-100.0); Mean Platelet Volume 10.9 fL (9.4-12.4); Platelet Count 195 K/mcL (140-400); Red Blood Count 4.13 M/mcL (3.82-4.97); Red Cell Distribution Width 12.3 % (11.5-14.5); White Blood Count 6.2 K/mcL (4.3-11.1)
[2022-02-04 17:11] LABS: Prothrombin Time 11.3 Seconds (9.4-12.1)
[2022-02-04 17:14] LABS: Activated Partial Thrombo Time 30.6 Seconds (26.0-36.0)
[2022-02-04 17:18] LABS: BUN/Creatinine Ratio 16 (6-26); Blood Urea Nitrogen 14 mg/dL (8-23); Carbon Dioxide 27 mEq/L (23-29); Chloride 106 mEq/L (98-107); Glucose 100 mg/dL (70-105); Osmolality,Calculated 287 (280-300); Potassium 3.7 mEq/L (3.5-5.1); Sodium 138 mEq/L (136-145)
[2022-02-04 17:19] LABS: Troponin I < 0.03 ng/mL (< 0.04)
[2022-02-04 17:31] LABS: Bilirubin,Urine Negative (Negative); Blood,Urine Negative (Negative); Clarity,Urine Clear (Clear); Color,Urine Colorless (Yellow); Glucose,Urine (UA) Normal (Normal); Ketones,Urine Negative (Negative); Leukocyte Esterase,Urine Large (Negative); Mucus,Urine Few per lpf (None-Few); Nitrite,Urine Negative (Negative); PH,Urine 6.5 pH Units (5.0-8.0); Protein,Urine Trace mg/dL (Neg-Trace); Specific Gravity,Urine > 1.030 (1.010-1.025); Squamous Epithelial Cell,Urine Few per hpf (None-Few); Urobilinogen,Urine Normal (Normal); WBC,Urine 15-30 per hpf (0-3)
[2022-02-04] MEDS ORDERED: Aspirin 325 MG TABLET PO ONE (18:16)
[2022-02-04] MEDS ORDERED: Ondansetron ODT 4 MG TAB.RAPDIS SL PRN (19:22)
[2022-02-04] MEDS ORDERED: Melatonin 3 MG TABLET PO PRN (19:22)
[2022-02-04] MEDS ORDERED: Naloxone 0.4 MG/ML INJ IVP PRN (19:22)
[2022-02-05 00:01] VITALS: O2SAT 96
[2022-02-05 04:51] LABS: Hematocrit 38.5 % (35.3-44.9); Mean Corpuscular HGB Conc 33.8 g/dL (31.6-35.5); Mean Corpuscular Hemoglobin 31.6 pg (28.0-33.3); Mean Corpuscular Volume 93.4 fL (83.0-100.0); Mean Platelet Volume 11.1 fL (9.4-12.4); Platelet Count 187 K/mcL (140-400); Red Blood Count 4.12 M/mcL (3.82-4.97); Red Cell Distribution Width 12.1 % (11.5-14.5); White Blood Count 6.7 K/mcL (4.3-11.1)
[2022-02-05 05:09] LABS: Albumin 3.6 g/dL (3.5-5.7); Albumin/Globulin Ratio 1.4 (1.1-2.2); Calcium 9.3 mg/dL (8.6-10.3); Globulin 2.5 g/dL (2.4-3.5); Magnesium 1.8 mg/dL (1.6-2.6); Phosphorous 3.6 mg/dL (2.7-4.5); Potassium 3.7 mEq/L (3.5-5.1); Total Protein 6.1 g/dL (6.4-8.9)
[2022-02-05] MEDS ORDERED: Aspirin 81 MG TAB.CHEW PO SCH (09:00)
[2022-02-05 09:28] LABS: Chol/HDL Ratio 3.2 (0-4.9)
[2022-02-05 10:35] VITALS: BP 174/82; PULSE 73; TEMP 97.7
[2022-02-05] MEDS ORDERED: Metoprolol XL (24 HR) Succ 25 MG TAB.ER.24H PO SCH (11:45)
[2022-02-05] MEDS ORDERED: lisinopriL 10 MG TABLET PO SCH (11:45)
[2022-02-05 12:24] LABS: Estimated Average Glucose 114 mg/dl; Hemoglobin A1C 5.6 %
== END 2022-02-05 13:14 | disposition home or self-care (01) ==
LOC: 3BNU 16:01 → EMEROOARM 16:01 → SUATTDRO 18:46 → 3BNU 18:48
PROVIDERS: ADMIT General Practice; ATTEND Internal Medicine